=== PATIENT | female | born 1955 | race Caucasian/White ===

== ENCOUNTER 2018-02-17 13:48 | Emergency (ER) | payer MEDICAID ==
[~2018-02-17] VITALS: Ht 152.4 cm; Wt 77.6 kg
[~2018-02-17 13:48] MED LIST: ACT30 PO; ALLOPURINOL100 MG PO; ANT12.5 PO; COZAAR50 MG PO; CYCLOBENZAPRINE5 MG PO; ECO81 PO; FENOFIBRATE145 M1 PO; JANUMET1 TA1 PO; MAC100 PO; NORCO1 TA2 PO; OMEPRAZOLE DR20 M1 PO; PLA75 PO; SIMVASTATIN20 M1 PO; TRE400 PO; VICODIN1 TA1 PO
[2018-02-17 13:56] VITALS: Ht 152.4 cm; Wt 77.6 kg
[2018-02-17 14:41] LABS: microscopic required? YES; urine erythrocyte 3+ (NEGATIVE)
[2018-02-17 14:44] LABS: BASOPHIL % 0.5 % (0-2); PLATELET COUNT 225 x10^3mcL (130-400); RED CELL DISTRIBUTION WIDTH 14.2 % (11.5-14.5)
[2018-02-17 14:57] LABS: CARBON DIOXIDE 22.9 mmol/L (21-32); POTASSIUM SERUM 3.8 mmol/L (3.5-5.1)
[2018-02-17 15:02] LABS: ALBUMIN 3.9 g/dL (3.4-5.0); BILIRUBIN TOTAL 0.6 mg/dL (0.20-1.00); TOTAL PROTEIN, SERUM 7.3 g/dL (6.4-8.2)
[2018-02-17 15:30] VITALS: BP 137/73
== END 2018-02-17 15:35 | disposition short-term general hospital (02) ==
LOC: ED 13:48
PROVIDERS: Emergency Medicine
DX: I63.9 Cerebral infarction, unspecified (principal); G43.909 Migraine, unspecified, not intractable, without status migrainosus; I10 Essential (primary) hypertension; E11.9 Type 2 diabetes mellitus without complications; F32.9 Major depressive disorder, single episode, unspecified; F41.9 Anxiety disorder, unspecified; E78.5 Hyperlipidemia, unspecified; Z90.711 Acquired absence of uterus with remaining cervical stump
CPT/HCPCS: 36415; 82962; Q0092

== ENCOUNTER 2019-04-05 20:49 | Emergency (ER) | payer OTHER ==
[~2019-04-05] VITALS: Ht 152.4 cm; Wt 84.4 kg
[2019-04-05 21:04] VITALS: Ht 152.4 cm; Wt 84.4 kg
[2019-04-05 22:01] LABS: BASOPHIL % 0.4 % (0-2); PLATELET COUNT 227 x10^3mcL (130-400)
[2019-04-05 22:03] LABS: RED CELL DISTRIBUTION WIDTH 15.8 % (11.5-14.5)
[2019-04-05 22:51] LABS: CARBON DIOXIDE 28.3 mmol/L (21-32); CREATININE SERUM 1.5 mg/dL (0.6-1.0); POTASSIUM SERUM 4.1 mmol/L (3.5-5.1)
[2019-04-05 22:55] LABS: ALBUMIN 3.5 g/dL (3.4-5.0); BILIRUBIN TOTAL 0.21 mg/dL (0.20-1.00); TOTAL PROTEIN, SERUM 7.1 g/dL (6.4-8.2)
[2019-04-06 00:44] VITALS: BP 126/87
== END 2019-04-06 00:44 | disposition home or self-care (01) ==
LOC: ED 20:49
PROVIDERS: Emergency Medicine
DX: N13.2 Hydronephrosis with renal and ureteral calculous obstruction (principal); I10 Essential (primary) hypertension; E11.9 Type 2 diabetes mellitus without complications; E78.00 Pure hypercholesterolemia, unspecified; Z86.73 Personal history of transient ischemic attack (TIA), and cerebral infarction without residual deficits; Z90.710 Acquired absence of both cervix and uterus
CPT/HCPCS: 36415; J1885